=== PATIENT | male | born 1985 | race Caucasian/White ===

== ENCOUNTER 2024-10-19 13:27 | Emergency (ER) | payer OTHER ==
[~2024-10-19] VITALS: Ht 175.3 cm; Wt 77.3 kg
[~2024-10-19 13:27] MED LIST: ALBU8.5H8 IH; CARBXR400 PO
[2024-10-19 14:22] VITALS: TEMP 97.7
[2024-10-19 16:21] VITALS: BP 145/90; PULSE 74; RESP 18; O2SAT 99
[2024-10-19 16:45] LABS: BASOPHILS % (AUTO) 0.6 % (0.0-2.0); EOSINOPHILS % (AUTO) 2.2 % (1.0-6.0); HEMATOCRIT 45.2 % (41-53); HEMOGLOBIN 14.9 g/dL (13.5-17.5); LYMPHOCYTES # (AUTO) 2.8 K/uL (1.0-4.8); LYMPHOCYTES % (AUTO) 32.8 % (22.0-44.0); MEAN CORPUSCULAR HEMOGLOBIN 30.9 pg (26.0-34.0); MEAN CORPUSCULAR VOLUME 93 fL (80-100); MONOCYTES # (AUTO) 0.7 K/uL (0.1-1.0); MONOCYTES % (AUTO) 8.3 % (2.0-9.0); NEUTROPHILS # (AUTO) 4.8 K/uL (1.8-7.7); NEUTROPHILS % (AUTO) 56.1 % (40.0-70.0); PLATELET COUNT (AUTO) 310 K/uL (150-450); RED BLOOD CELL COUNT(AUTO) 4.84 MIL/uL (4.50-5.90); WHITE BLOOD COUNT (AUTO) 8.6 K/uL (4.5-11.0)
[2024-10-19 16:47] LABS: ANION GAP 4 mmol/L (8-16); CALCIUM, TOTAL 8.9 mg/dL (8.8-10.5); CARBON DIOXIDE 31 mmol/L (22-29); CHLORIDE 105 mmol/L (98-107); GLOMERULAR FILTR. RATE CALC > 60 mL/min (>60); GLUCOSE,RANDOM 87 mg/dL (70-110); POTASSIUM 3.7 mmol/L (3.5-5.1); SODIUM SERUM 140 mmol/L (136-145); UREA NITROGEN, BLOOD 17 mg/dL (7-18)
[2024-10-19 16:49] LABS: COVID AG,FIA SOURCE NASAL SWAB
[2024-10-19 17:07] LABS: ALCOHOL, BLOOD (SERUM) < 3 mg/dL (0-10)
[2024-10-19 17:15] LABS: SARS-COV2 (COVID) ANTIGEN,FIA Negative (Negative)
[2024-10-19] MEDS ORDERED: ZOLPIDEM TARTRATE 10 MG TABLET PO PRN (18:00)
[2024-10-19] MEDS ORDERED: LORazepam 2 MG TABLET PO PRN (18:00)
[2024-10-19] MEDS ORDERED: HALOPERIDOL 5 MG TABLET PO PRN (18:00)
[2024-10-19] MEDS ORDERED: NICOTINE POLACRILEX 4 MG LOZENGE PO ONE (19:30)
[2024-10-19] MEDS ORDERED: ONDANSETRON 4 MG TABLET PO ONE (19:30)
[2024-10-19 20:16] LABS: APPEARANCE,URINE HAZY (CLEAR); BILIRUBIN,URINE NEGATIVE (NEGATIVE); COLOR,URINE LIGHT YELLOW (YELLOW); GLUCOSE, URINE (UA) NEGATIVE (NEGATIVE); KETONES,URINE NEGATIVE (NEGATIVE); LEUKOCYTE ESTERASE ,URINE NEGATIVE (NEGATIVE); NITRATE,URINE NEGATIVE (NEGATIVE); OCCULT BLOOD,URINE NEGATIVE (NEGATIVE); PROTEIN,URINE NEGATIVE (NEGATIVE); SPECIFIC GRAVITIY, URINE 1.024 (1.003-1.030); UROBILINOGEN,URINE <=1.0 mg/dL (<=1.0)
[2024-10-19 20:27] LABS: ALCOHOL, URINE DRUG SCREEN NEGATIVE (NEGATIVE); AMPHET/METH SCREEN,URINE POSITIVE (NEGATIVE); BARBITURATE SCREEN, URINE NEGATIVE (NEGATIVE); BENZODIAZEPINES SCREEN,URINE NEGATIVE (NEGATIVE); CANNABINOID SCREEN,URINE POSITIVE (NEGATIVE); COCAINE SCREEN,URINE POSITIVE (NEGATIVE); METHADONE SCREEN, URINE NEGATIVE (NEGATIVE); OPIATE SCREEN,URINE NEGATIVE (NEGATIVE); PHENCYCLIDINE SCREEN,URINE NEGATIVE (NEGATIVE)
== END 2024-10-19 20:15 | disposition left against medical advice (07) ==
LOC: EMS 13:40
DX: F32.9 Major depressive disorder, single episode, unspecified (principal); F17.210 Nicotine dependence, cigarettes, uncomplicated; G40.909 Epilepsy, unspecified, not intractable, without status epilepticus; F19.11 Other psychoactive substance abuse, in remission; J45.909 Unspecified asthma, uncomplicated; Z20.822 Contact with and (suspected) exposure to COVID-19
CPT/HCPCS: 99283; 99406; 87426; 80048; 81003; 85025; 36415; 80307; G0480

== ENCOUNTER 2025-05-01 05:05 | Emergency (ER) | payer OTHER ==
[~2025-05-01] VITALS: Ht 175.3 cm; Wt 84.1 kg
[2025-05-01 06:04] LABS: PLATELET COUNT (AUTO) 339 K/uL (150-450); RED BLOOD CELL COUNT(AUTO) 4.66 MIL/uL (4.50-5.90); RED CELL DISTRIBUTION WIDTH 13.4 % (11.5-14.5); WHITE BLOOD COUNT (AUTO) 13.4 K/uL (4.5-11.0)
[2025-05-01 06:50] LABS: CALCIUM, TOTAL 8.9 mg/dL (8.8-10.5); CREATININE 0.62 mg/dL (0.60-1.30); GLOMERULAR FILTR. RATE CALC > 60 mL/min (>60); GLUCOSE,RANDOM 93 mg/dL (70-110); SODIUM SERUM 140 mmol/L (136-145); UREA NITROGEN, BLOOD 16 mg/dL (7-18)
[2025-05-01] MEDS ORDERED: LIDOCAINE 1% 10 ML VIAL ONE (09:30)
[2025-05-01 09:43] VITALS: BP 155/96; PULSE 83; RESP 16; TEMP 98.4; O2SAT 98
[2025-05-01] MEDS: OxyCODONE HCL/ACETAMINOPHEN 5-325 MG TABLET PO ONE (10:52)
[2025-05-01] MEDS: CEPHALEXIN MONOHYDRATE 500 MG CAPSULE PO ONE (10:52)
[2025-05-01] MEDS: SULFAMETHOX/TRIMETH DS 800-160 MG/TABLET PO ONE (10:53)
[2025-05-01] MEDS ORDERED: PERCT PO (11:28)
[2025-05-01] MEDS ORDERED: CEPH-558 PO (11:28)
[2025-05-01] MEDS ORDERED: SULF-261 PO (11:28)
== END 2025-05-01 11:32 | disposition home or self-care (01) ==
LOC: EMS 05:10
DX: L02.414 Cutaneous abscess of left upper limb (principal); J45.909 Unspecified asthma, uncomplicated; F32.A Depression, unspecified; F17.210 Nicotine dependence, cigarettes, uncomplicated; F11.90 Opioid use, unspecified, uncomplicated; F15.90 Other stimulant use, unspecified, uncomplicated; Z79.899 Other long term (current) drug therapy
CPT/HCPCS: 99284; 10060; 80048; 85025; 36415; J3490

== ENCOUNTER 2025-05-13 00:06 | Emergency (ER) | payer OTHER ==
[~2025-05-13] VITALS: Ht 175.3 cm; Wt 77.3 kg
[~2025-05-13 00:06] MED LIST changes: +CEPH-558 PO; +PERCT PO; +SULF1TAB94 PO
[2025-05-13 00:27] VITALS: BP 131/77; PULSE 71; RESP 16; TEMP 97.3; O2SAT 96
== END 2025-05-13 01:17 | disposition left against medical advice (07) ==
LOC: EMS 00:06
DX: T63.301A Toxic effect of unspecified spider venom, accidental (unintentional), initial encounter (principal); Z53.21 Procedure and treatment not carried out due to patient leaving prior to being seen by health care provider; Y92.89 Other specified places as the place of occurrence of the external cause